=== PATIENT | female | born 1990 | race Caucasian/White ===

== ENCOUNTER 2017-07-20 09:30 | Emergency (ER) | payer SELFPAY ==
[2017-07-20 09:43] VITALS: BP 106/59
--- NOTE | 2017-07-20 09:58 | ER Document Report ---
ED General - General Chief Complaint: Abdominal Cramping Stated Complaint: PELVIC PAIN Mode of Arrival: Ambulatory Information source: Patient TRAVEL OUTSIDE OF THE [place] IN LAST 30 DAYS: No - HPI Notes: 26 yr old female presents today with complaints with acute onset of pelvic pain after she had sex with her last night, is concerned that her IUD shifted. Denies any vaginal bleeding, vaginal discharge. Reports she has a history of ovarian cysts on both sides. States that she has had issues with ovarian cysts in the past and this pain does not feel like an ovarian cyst pain. Denies , cp, sob, n/v/d. denies issues with bowel, urinary incontinence or saddle anesthesia since onset of symptoms. denies hx of pid, endometriosis or internal surgeries. Pain 1/10, cramping. Denies fevers or chills. Denies any trauma. No otc meds have been tried. Finally had her Pap done a month ago by her [employer] - Related Data Allergies/Adverse Reactions: latex Allergy (Verified 07/20/17 09:33) Past Medical History - General Information source: Patient - Social History Smoking Status: Current Every Day Smoker Frequency of alcohol use: Rare Drug Abuse: None Family History: Reviewed & Not Pertinent Patient has suicidal ideation: No Patient has homicidal ideation: No Renal/ Medical History: Denies: Hx Peritoneal Dialysis Past Surgical History: Reports: Hx Section - X1, Hx Cholecystectomy, Hx Orthopedic Surgery - right ankle, Hx Tonsillectomy Review of Systems - Review of Systems Constitutional: No symptoms reported EENT: No symptoms reported Cardiovascular: No symptoms reported Respiratory: No symptoms reported Gastrointestinal: No symptoms reported Genitourinary: No symptoms reported Female Genitourinary: See HPI Musculoskeletal: No symptoms reported Skin: No symptoms reported Hematologic/Lymphatic: No symptoms reported Neurological/Psychological: No symptoms reported Physical Exam - Vital signs Vitals: Temp Pulse Resp BP Pulse Ox 97.9 F 83 16 106/59 L 98 07/20/17 09:40 07/20/17 09:40 07/20/17 09:40 07/20/17 09:40 07/20/17 09:40 Interpretation: Normal - Notes Notes: PHYSICAL EXAMINATION: GENERAL: Well-appearing, well-nourished and in no acute distress. HEAD: Atraumatic, normocephalic. EYES: Pupils equal round and reactive to light, extraocular movements intact, conjunctiva are normal. ENT: Nares patent, oropharynx clear without exudates. Moist mucous membranes. NECK: Normal range of motion, supple without lymphadenopathy LUNGS: Breath sounds clear to auscultation bilaterally and equal. No wheezes rales or rhonchi. HEART: Regular rate and rhythm without murmurs ABDOMEN: Soft, nontender, nondistended abdomen. No guarding, no rebound. No masses appreciated. Female exam: External genitalia without erythema, exudate or discharge. Vaginal vault is without discharge. Cervix is of normal color without lesion. There is no bleeding noted. Uterus is noted to be of normal size and nontender. No cervical motion tenderness is seen. No masses are palpated. No string seen from IUD. Musculoskeletal: Normal range of motion, no pitting or edema. No cyanosis. NEUROLOGICAL: Cranial nerves grossly intact. Normal speech, normal gait. Normal sensory, motor exams PSYCH: Normal mood, normal affect. SKIN: Warm, Dry, normal turgor, no rashes or lesions noted. Course - Re-evaluation Re-evalutation: Rechecked the patient who is resting comfortably. On re-exam, patient is symptomatically improved. Discussed the results of the labs/radiology as well as the diagnosis at great length. IUD is in place, likely her pain is coming from her cysts. Advised to follow-up with her [employer] within 3 days. Take over- the-counter ibuprofen Tylenol for pain control, apply heat 20 minutes on 20 minutes off several times a day. Avoid sexual intercourse until symptoms have resolved. Discussed the need to return to the ER for any new or worsening sx. All questions answered. Patient comfortable with the decision to go home. 07/20/17 12:45 - Vital Signs Vital signs: Temp Pulse Resp BP Pulse Ox 97.9 F 85 16 106/59 L 97 07/20/17 09:42 07/20/17 09:42 07/20/17 09:42 07/20/17 09:42 07/20/17 09:42 - Laboratory Laboratory results interpreted by me: 07/20/17 10:10 Urine Urobilinogen 4.0 H Discharge - Discharge Clinical Impression: Ovarian cyst Qualifiers: Laterality: bilateral Qualified Code(s): N83.201 - Unspecified ovarian cyst, right side Condition: Good Disposition: HOME, SELF-CARE Instructions: Ovarian Cyst ([facility]) Additional Instructions: Ovarian Cyst Your examination shows the presence of an ovarian cyst. This is a ball of fluid attached to the ovary. Ovarian cysts in women of child-bearing age are usually innocent. However, the cyst may cause pain when it grows or bursts. An innocent ovarian cyst will usually go away by itself. When the cyst becomes painful, you should rest. Pain medication may be required. Some women find a hot water bottle soothing. The pain usually resolves within one or two days. After menopause, an ovarian cyst may mean a tumor, and requires more aggressive evaluation -- usually surgery is recommended to remove or biopsy the cyst. A very large cyst requires evaluation at any age. Most cysts (even the innocent ones) require follow-up examination. Call the doctor or return at any time if the pain increases significantly, if you become faint, or if you experience vaginal bleeding. follow up with [employer] in 3 days. Take [id number] ibuprofen and Tylenol as needed for pain. Apply heat 20 minutes on 20 minutes off several 2 a day to affected area. Return to emergency room symptoms become worse. Return immediately for any new or worsening symptoms. Follow up with primary care provider, call tomorrow to make followup appointment. Referrals: DEBBIE LEVIN MD [ACTIVE STAFF] - (in 3-5 days)
[2017-07-20 10:41] LABS: APPEARANCE,URINE SLIGHTLY-CLOUDY; BILIRUBIN,URINE NEGATIVE (NEGATIVE); COLOR,URINE YELLOW; GLUCOSE, URINE NEGATIVE (NEGATIVE); KETONES,URINE NEGATIVE (NEGATIVE); LEUKOCYTE ESTERASE,URINE NEGATIVE (NEGATIVE); NITRITE,URINE NEGATIVE (NEGATIVE); PROTEIN,URINE NEGATIVE (NEGATIVE); URINE SPECIFIC GRAVITY 1.024
--- NOTE | 2017-07-20 12:15 | RADIOLOGY REPORT (SQ) ---
EXAM DESCRIPTION: U/S NON OB PEL TV W/DOPPLER COMPLETED DATE/TIME: 07/20/2017 12:04 pm REASON FOR STUDY: severe pain from sex, unsure if IUD moved COMPARISON: None. TECHNIQUE: Dynamic and static grayscale images acquired of the pelvis via transvaginal approach and recorded on PACS. Additional selected color Doppler and spectral images recorded. LIMITATIONS: None. FINDINGS: UTERUS: Contour normal. No mass. ENDOMETRIAL STRIPE: No focal or generalized thickening. No masses. IUD present. CERVIX: No nabothian cysts. RIGHT OVARY: 1.7 cm simple cyst. RIGHT OVARY DOPPLER: Normal arterial vascular flow without evidence for torsion. LEFT OVARY: 3.6 cm simple cyst. LEFT OVARY DOPPLER: Normal arterial vascular flow without evidence for torsion. FREE FLUID: None noted. OTHER: No other significant finding. MEASUREMENTS: UTERUS: 4.4 x 5.4 x 10.0 cm. ENDOMETRIAL STRIPE: 2 mm. RIGHT OVARY: 2.6 x 2.7 x 3.2 cm. LEFT OVARY: 3.1 x 4.0 x 5.0 cm. IMPRESSION: 1. IUD IS IN APPROPRIATE POSITION. 2. SIMPLE CYSTS IN BOTH OVARIES. 3.6 CM CYST LEFT OVARY. 3. OTHERWISE UNREMARKABLE TRANSVAGINAL PELVIC ULTRASOUND. TECHNICAL DOCUMENTATION: JOB ID: [id number] [employer]- All Rights Reserved
== END 2017-07-20 13:01 | disposition home or self-care (01) ==
LOC: ER 09:30
DX: N83.201 Unspecified ovarian cyst, right side (principal); N83.202 Unspecified ovarian cyst, left side; R10.9 Unspecified abdominal pain; R10.2 Pelvic and perineal pain; F17.200 Nicotine dependence, unspecified, uncomplicated
CPT/HCPCS: 76830; 81001; 87086; 93976; 99284

== ENCOUNTER 2018-05-19 09:50 | Day surgery (SDC) | payer MEDICAID ==
[2018-05-12 12:04] LABS: HEMATOCRIT 42.3 % (36.0-47.0); HEMOGLOBIN 14.4 g/dL (12.0-15.5); MEAN CORPUSCULAR HEMOGLOBIN 30.4 pg (27.0-33.4); MEAN CORPUSCULAR HGB CONC 34.1 g/dL (32.0-36.0); MEAN CORPUSCULAR VOLUME 89 fl (80-97); PLATELET COUNT 254 10^3/uL (150-450); RED BLOOD COUNT 4.74 10^6/uL (3.72-5.28); RED CELL DISTRIBUTION WIDTH 13.3 % (11.5-14.0); WHITE BLOOD COUNT 6.9 10^3/uL (4.0-10.5)
[2018-05-12 12:20] LABS: APPEARANCE,URINE CLEAR; BILIRUBIN,URINE NEGATIVE (NEGATIVE); COLOR,URINE YELLOW; GLUCOSE, URINE NEGATIVE (NEGATIVE); KETONES,URINE NEGATIVE (NEGATIVE); LEUKOCYTE ESTERASE,URINE MODERATE (NEGATIVE); NITRITE,URINE NEGATIVE (NEGATIVE); PROTEIN,URINE NEGATIVE (NEGATIVE); URINE SPECIFIC GRAVITY 1.008; UROBILINOGEN,URINE NEGATIVE mg/dL (<2.0)
[~2018-05-19 09:50] MED LIST: BUPIVACAINE HCL 0.25 % INJ/PF (2.5 MG/1 ML) 30 ML VIAL ONE; LACTATED RINGERS 1000 ML IV PRN; LIDOCAINE 0.5% INJ-PF (5 MG/ML) 50 ML SDV SUBCUT PRN
[2018-05-19] MEDS ORDERED: FENTANYL CITRATE INJ/PF 100 MCG/2 ML AMPUL ONE (10:55)
[2018-05-19] MEDS ORDERED: MIDAZOLAM 2 MG/2 ML INJ ONE (10:55)
[2018-05-19] MEDS ORDERED: PROPOFOL INJ 200 MG/20 ML VIAL IV ONE (10:55)
[2018-05-19] MEDS ORDERED: FENTANYL CITRATE INJ/PF 100 MCG/2 ML AMPUL IV PRN ×3 (12:49)
[2018-05-19] MEDS ORDERED: PROMETHAZINE HCL INJ 25 MG/1 ML VIAL IV PRN ×2 (12:49)
[2018-05-19] MEDS ORDERED: DIPHENHYDRAMINE HCL 50 MG/ML VIAL IV PRN (12:49)
[2018-05-19] MEDS ORDERED: OXYCODONE-ACETAMINOPHEN 5-325 MG TABLET PO PRN ×2 (12:49)
[2018-05-19] MEDS ORDERED: MEPERIDINE HCL/PF INJ 25 MG/1 ML DISP.SYRIN IV PRN (12:49)
[2018-05-19] MEDS: FENTANYL CITRATE INJ/PF 100 MCG/2 ML AMPUL ONE ×2 (13:22→13:40)
[2018-05-19] MEDS: PROMETHAZINE HCL INJ 25 MG/1 ML VIAL ONE ×2 (13:25→13:41)
[2018-05-19] MEDS ORDERED: ONDANSETRON HCL INJ/PF 4 MG/2 ML SDV ONE ×2 (13:48→15:43)
[2018-05-19] MEDS ORDERED: SUCCINYLCHOLINE CHLORIDE INJ 200 MG/10 ML VIAL ONE (13:48)
[2018-05-19] MEDS ORDERED: KETOROLAC TROMETHAMINE 60 MG/2 ML SDV ONE (13:48)
[2018-05-19] MEDS ORDERED: DEXAMETHASONE SOD PHOSPHATE INJ 4 MG/1 ML VIAL ONE (13:48)
[2018-05-19] MEDS ORDERED: OXYCODONE-ACETAMINOPHEN 5-325 MG TABLET ONE (14:23)
[2018-05-19] MEDS ORDERED: SCOPOLAMINE HYDROBROMIDE 1.5 MG PATCH.TD72 ONE (15:43)
[2018-05-19 17:17] VITALS: BP 113/72
--- NOTE | 2018-05-20 06:43 | Operative Report ---
Operative Report DATE OF SURGERY: 05/19/18 PREOPERATIVE DIAGNOSIS: Undesired Fertility POSTOPERATIVE DIAGNOSIS: PAUL, endometriosis OPERATION: Laparoscopic Tubal ligation with Filschie clips SURGEON: DEBBIE LEVIN ANESTHESIA: GA TISSUE REMOVED OR ALTERED: none COMPLICATIONS: none ESTIMATED BLOOD LOSS: less than 5ml INTRAOPERATIVE FINDINGS: scar and probable endometriosis implants above bladder and in ovarian fossas, Bilateral fallopian tubes occluded with Filschie clips times two. PROCEDURE: Anesthesiologist: Ehsan Elam MD, CRNA IV fluids: [900ml] Urine output: [400ml] Indications: [27yo here for scheduled Bilateral tubal ligation. She is 100 sure that she has completed childbearing. She currently has a Mirena for contraecption and for menstrual cycle control. Mirena is due to be removed Mar 2019. The risks, benefits, alternatives were reviewed with the patient and she desires to proceed with planned procedure.] Procedure: The patient was taken to the operating room where general anesthesia was obtained without difficulty. The patient was then examined under anesthesia with findings as noted above with a small anteverted uterus. She was then placed in dorsal supine lithotomy position and prepped and draped in the normal sterile fashion. Liberty speculum was then placed in the patient's vagina and the anterior lip of the cervix grasped with a single-tooth tenaculum. A [employer] uterine manipulator was then advanced into the uterus to provide a means of manipulation of the uterus. The speculum and tenaculum were then removed from the patient's cervix and vagina. Attention was then turned to the patient's abdomen where a 5 mm infraumbilical skin incision was then made. The Optiview trocar with 0 laparoscope was then advanced without difficulty under direct visualization with the Optiview trocar. This was performed while tenting the abdominal wall and these will fashion. Intraperitoneal placement was confirmed by the direct visualization. Pneumoperitoneum was then obtained with approximately 4 L carbon dioxide gas. Survey of the patient's abdomen and pelvis revealed findings as noted above. A second skin incision was then made approximately 2 cm above the symphysis pubis in the midline. This incisions were made under direct visualization with the laparoscope. The second trochars was then advanced under direct visualization of the laparoscope. The right fallopian tube was then identified and followed out to the fimbriated end and the Filschie clip was placed times two in the mid ampullary portion of the fallopian tube. Attention was then turned to the left adnexa at which time the left fallopian tube was identified and followed out to the fimbriated end. Filschie clips times two on the left fallopian tube in the mid ampullary portion of the fallopian tube. The left and right fallopian tubes were removed easily through the trocar. All operative sites were visualized and noted to be hemostatic. The additional trochar was removed under direct visualization. The 5 mm trocar was then removed after abdominal insufflation was removed. The skin at all trocar sites were closed with 3-0 Monocryl in a subcuticular fashion with overlying Dermabond. No antibiotics were indicated for this procedure. After completion of skin closure of the trocar sites attention was then turned to the vagina where the [employer] uterine manipulator was removed and the bivalve speculum was replaced. Silver nitrate was applied to the tenaculum sites for hemostasis and the speculum was removed. Sponge lap needle and instrument counts were correct 3. The patient tolerated the procedure well and was taken to the recovery area awake and in stable condition.
== END 2018-05-19 16:40 | disposition home or self-care (01) ==
LOC: OROUT 09:50
PROVIDERS: ATTEND Student in an Organized Health Care Education/Training Program
DX: Z30.2 Encounter for sterilization (principal); N80.1 Endometriosis of ovary; N80.8 Other endometriosis; Z01.818 Encounter for other preprocedural examination; F17.210 Nicotine dependence, cigarettes, uncomplicated; Z88.8 Allergy status to other drugs, medicaments and biological substances; Z91.040 Latex allergy status; Z88.5 Allergy status to narcotic agent
CPT/HCPCS: 36415; 85027; 81005; 81025; 58671; J2250; J1100; J1885; J3010; J3490; J2550; J0330; J2405; S0020; J2704; 851

== ENCOUNTER 2018-06-29 22:50 | Emergency (ER) | payer MEDICAID ==
[2018-06-30] MEDS ORDERED: EPINEPHRINE INJ/PF 1 MG/1 ML AMPULE IM ONE (00:14)
[2018-06-30] MEDS ORDERED: PREDNISONE 20 MG TABLET PO ONE (00:14)
[2018-06-30] MEDS ORDERED: FAMOTIDINE 20 MG TABLET PO ONE (00:14)
--- NOTE | 2018-06-30 00:18 | ER Document Report ---
ED General - General Chief Complaint: Allergic Reaction Stated Complaint: POSSIBLE ALLERGIC REACTION Time Seen by Provider: 06/30/18 00:12 Mode of Arrival: Ambulatory Information source: Patient Notes: 27-year-old female with no significant past medical history presents with complaint of pruritic rash that developed this morning. Patient states that she awoke this morning with an erythematous rash on her chest, abdomen back and upper extremities. She denies any new exposures, new medications, new soaps, lotions. Patient denies prior similar symptoms. She states that she did spend the weekend with her mother and is unsure if she used anything differently. Patient did take Benadryl this morning, fell asleep and then awoke with worsening itching. Patient drove here herself. She denies any shortness of breath, wheezing, coughing, vomiting. TRAVEL OUTSIDE OF THE [place] IN LAST 30 DAYS: No - HPI Onset: This morning Onset/Duration: Sudden Quality of pain: No pain Associated symptoms: None. denies: Chest pain, Nonproductive cough, Productive cough, Nausea, Vomiting, Shortness of breath Exacerbated by: Denies Relieved by: Denies Similar symptoms previously: No Recently seen / treated by doctor: No - Related Data Allergies/Adverse Reactions: ethinyl estradiol [From Tri-Sprintec (28)] Allergy (Verified 06/30/18 00:04) latex Allergy (Verified 06/30/18 00:04) norgestimate [From Tri-Sprintec (28)] Allergy (Verified 06/30/18 00:04) propoxyphene [From Darvocet-N] Allergy (Verified 06/30/18 00:04) Anaphylaxis Past Medical History - General Information source: Patient - Social History Smoking Status: Current Every Day Smoker Frequency of alcohol use: Social Drug Abuse: None Family History: Reviewed & Not Pertinent Patient has suicidal ideation: No Patient has homicidal ideation: No - Medical History Medical History: Negative Renal/ Medical History: Denies: Hx Peritoneal Dialysis Past Surgical History: Reports: Hx Section - X1, Hx Cholecystectomy, Hx Orthopedic Surgery - right ankle, Hx Tonsillectomy, Hx Tubal Ligation Review of Systems - Review of Systems Notes: REVIEW OF SYSTEMS: CONSTITUTIONAL : Denies fever, chills, or sweats. Denies recent illness. Denies weight loss, recent hospitalizations. EENT: Denies visual changes, eye pain. Denies sore throat, oral lesions, dif ficulty swallowing. CARDIOVASCULAR: Denies chest pain. Denies palpitations. Denies lower extremity edema. RESPIRATORY: Denies cough. Denies shortness of breath, wheezing. GASTROINTESTINAL: Denies abdominal pain or distention. Denies nausea, vomiting, or diarrhea. Denies blood in vomitus, stools, or per rectum. Denies black, tarry stools. Denies constipation. GENITOURINARY: Denies difficulty urinating, painful urination, frequency, blood in urine, or vaginal discharge. MUSCULOSKELETAL: Denies back or neck pain or stiffness. Denies joint pain or swelling. SKIN: + Rash HEMATOLOGIC : Denies easy bruising or bleeding. LYMPHATIC: Denies swollen glands. NEUROLOGICAL: Denies confusion or altered mental status. Denies loss of consciousness. Denies dizziness or lightheadedness. Denies headache. Denies weakness or paralysis. Denies problems difficulty with ambulation, slurred speech. Denies sensory loss, numbness, or tingling. Denies seizures. PSYCHIATRIC: Denies anxiety or stress. Denies depression, suicidal ideation, or homicidal ideation. Denies visual or auditory hallucinations. Physical Exam - Vital signs Vitals: Temp Pulse Resp BP Pulse Ox 98.0 F 92 16 129/81 H 97 06/29/18 22:58 06/29/18 22:58 06/29/18 22:58 06/29/18 22:58 06/29/18 22:58 - Notes Notes: PHYSICAL EXAMINATION: GENERAL: Well-appearing, well-nourished and in no acute distress. HEAD: Atraumatic, normocephalic. EYES: Pupils equal round and reactive to light, extraocular movements intact, conjunctiva are normal. ENT: Nares patent, oropharynx clear without exudates. Moist mucous membranes. NECK: Normal range of motion, supple without lymphadenopathy. No stridor LUNGS: Breath sounds clear to auscultation bilaterally and equal. No wheezes rales or rhonchi. HEART: Regular rate and rhythm without murmurs ABDOMEN: Soft, nontender, nondistended abdomen. No guarding, no rebound. No masses appreciated. Female : deferred Musculoskeletal: Normal range of motion, no pitting or edema. No cyanosis. NEUROLOGICAL: Cranial nerves grossly intact. Normal speech, normal gait. Normal sensory, motor exams PSYCH: Normal mood, normal affect. SKIN: Diffuse urticarial rash on the chest, abdomen back and upper extremities. Course - Re-evaluation Re-evalutation: Temp Pulse Resp BP Pulse Ox 98.0 F 92 18 116/80 96 06/29/18 22:58 06/29/18 22:58 06/30/18 01:01 06/30/18 01:01 06/30/18 01:01 06/30/18 03:55 27-year-old female presents with an acute onset of an urticarial rash that is diffusely located. Patient denies any known allergies, new exposures. Vital signs stable upon arrival. Patient has no wheezing, vomiting. Patient did drive herself to the emergency department so prednisone, Pepcid and IM epinephrine were administered. During her ED course the patient got a phone call that her child was home sick and requested discharge home prior to completion of exam. She does state that she did feel better after receiving the medications. She was advised to take Benadryl as needed for rash, itching. Patient encouraged to return with any symptoms or if the rash does not resolve. Patient was evaluated and treated as appropriate for the patient's presenting symptoms and complaint, with consideration of any critical or life threatening conditions that may be associated with their obtained history and exam as noted above. All results were discussed with patient. Patient provided the opportunity to ask questions, and express concerns. Patient was educated on treatments based on their presumed diagnosis as noted above. At this time we will discharge the patient with return precautions and follow-up recommendations. Verbal discharge instructions given a the bedside. Medication warnings reviewed. Patient is in agreement with this plan and has verbalized understanding of return precautions. After careful consideration I feel that that patient can be safely discharged from the emergency department, they were advised to followup with a primary care physician in 2-3 days. Dictation on this chart was performed using voice recognition software and may result in unintended grammatical, spelling, syntax or errors. - Vital Signs Vital signs: Temp Pulse Resp BP Pulse Ox 98.0 F 92 18 116/80 96 06/29/18 22:58 06/29/18 22:58 06/30/18 01:01 06/30/18 01:01 06/30/18 01:01 Discharge - Discharge Clinical Impression: Urticarial rash Allergic reaction Qualifiers: Encounter type: initial encounter Qualified Code(s): T78.40XA - Allergy, unspecified, initial encounter Condition: Good Disposition: HOME, SELF-CARE Instructions: Acute Allergic Reaction ([facility]), Acute Urticaria ([facility]) Additional Instructions: It is unclear what caused your allergic reaction today. Please take Benadryl 25-50 mg every 8 hours as needed for itching, rash. You have been provided prednisone and Pepcid to take for the next 5 days. Please return if you experience shortness of breath, difficulty swallowing. Follow up with your [id number] hours for further care or return to the ED IMMEDIATELY if symptoms worsen or you have any concerns. If you cannot afford to follow up with your primary care physician a list of low cost clinics have been provided at the end of your discharge papers as well. Most prescribed medications have multiple side effects. The safest thing to do is when filling your prescription speak to your pharmacist regarding possible interactions with your normal home medications and over the counter medications such as Ibuprofen, Tylenol, Benadryl. If you experience any symptoms that cause you discomfort or concern you should discontinue the medication immediately and return to the emergency room or call your primary care physician. Prescriptions: Famotidine [Pepcid 40 mg Tablet] 40 mg PO DAILY #5 tablet Prednisone [Deltasone 20 mg Tablet] 2 tab PO DAILY 5 Days #10 tablet
[2018-06-30 01:03] VITALS: BP 116/80
== END 2018-06-30 01:14 | disposition home or self-care (01) ==
LOC: ER 22:50
DX: T78.40XA Allergy, unspecified, initial encounter (principal); L50.9 Urticaria, unspecified; R21 Rash and other nonspecific skin eruption; F17.200 Nicotine dependence, unspecified, uncomplicated
CPT/HCPCS: 99282; 96372; J3490; J0171; J7512